=== PATIENT | female | born 1980 | race Two or more races ===

== ENCOUNTER 2017-07-14 05:37 | Day surgery (SDC) | payer OTHER ==
[2017-07-12 11:34] VITALS: BMI 40.0
--- NOTE | 2017-07-14 10:17 | HP ---
History & Physical Update - History History: No Change - Physical Physical: No Change - Assessment Assessment: No Change - Plan Plan: No Change (AUB - submucosal fibroid/polyp noted - for hysteroscopy and resection of fibroid/polyp)
[2017-07-14] MEDS ORDERED: ACETAMINOPHEN 325 MG TABLET (FP) PO PRN (10:19)
[2017-07-14] MEDS ORDERED: IBUPROFEN 800 MG/8 ML IJ IVPB PRN (10:19)
[2017-07-14] MEDS ORDERED: LACTATED RINGERS SOLUTION 1,000 ML IV SCH (10:30)
[2017-07-14] MEDS ORDERED: SUCCINYLCHOLINE CHLORIDE 200 MG/10 ML VIAL ONE (10:36)
[2017-07-14] MEDS ORDERED: MIDAZOLAM HCL 2 MG/2 ML SINGLE DOSE VIAL ONE (10:36)
[2017-07-14] MEDS ORDERED: LIDOCAINE HCL/PF 2% SDV 5ML VIAL ONE (10:36)
[2017-07-14] MEDS ORDERED: PROPOFOL 20 ML ONE (10:36)
[2017-07-14] MEDS ORDERED: KETOROLAC TROMETHAMINE 30 MG/1 ML VIAL ONE (11:22)
[2017-07-14] MEDS ORDERED: DEXAMETHASONE SOD PHOSPHATE 4 MG/1 ML VIAL ONE (11:24)
[2017-07-14] MEDS ORDERED: oxyCODONE HCL 5 MG TABLET PO PRN (11:45)
[2017-07-14] MEDS ORDERED: PROMETHAZINE HCL 25 MG/1 ML VIAL IVPUSH PRN (11:45)
[2017-07-14] MEDS ORDERED: ONDANSETRON 4 MG/2 ML VIAL IVPUSH PRN (11:45)
[2017-07-14] MEDS ORDERED: IBUPROFEN 800 MG/8 ML IJ IVPB ONE (12:18)
[2017-07-14 13:24] VITALS: BP 107/69; PULSE 72
[2017-07-14 13:28] VITALS: TEMP 97.8
--- NOTE | 2017-07-15 11:55 | PATH ---
Surgical Pathology Report Patient Name: KYLAH MAST [facility]. Rec. #: [id number] /Age/Gender: 1980 (Age: 37) / F Account: [id number] Location: [facility] SURGICAL Taken: 07/14/2017 Received: 07/14/2017 Reported: 07/15/2017 Physicians: Silvina Torres M.D. Specimen(s) Received INTRA UTERINE CONTENTS Clinical History Endometrial polyp Final Diagnosis ENDOMETRIUM, CURETTING: PORTIONS OF BENIGN ENDOMETRIAL POLYP, ALONG WITH LATE PROLIFERATIVE AND EARLY SECRETORY ENDOMETRIUM. NO ENDOMETRIAL HYPERPLASIA OR CARCINOMA IDENTIFIED. Electronically Signed Angel Mcgarry M.D. Gross Description Received in formalin labeled "intrauterine contents," is a 3.5 x 2.8 x 0.4 cm aggregate of black pink soft tissue fragments. The formalin is filtered and the specimen is entirely submitted in 2 cassettes. /07/14/2017 saudi/07/14/2017
--- NOTE | 2017-07-28 13:13 | OP ---
Operative Note - Note: Operative Date: 07/14/17 ([id number]) Pre-Operative Diagnosis: endometrial polyp Operation: hysteroscopic myomectomy, suction D&C Post-Operative Diagnosis: Same as Pre-op Surgeon: Silvina Torres Anesthesiologist/PRODUCTION UNDERWRITER: Luis Enrique Weaver Anesthesia: General Specimens Removed: endometrial polyp, endometrial curettings Estimated Blood Loss (mls): 10 Fluid Volume Replaced (mls): 140 (140cc fluid defecit of NSS) Operative Report Dictated: Yes
--- NOTE | 2017-07-28 13:34 | OP ---
DATE OF OPERATION: 07/14/2017 PREOPERATIVE DIAGNOSES: Abnormal uterine bleeding and endometrial polyp. POSTOPERATIVE DIAGNOSES: Abnormal uterine bleeding and endometrial polyp. PROCEDURE: Hysteroscopic resection of endometrial polyp and suction dilatation and curettage. SURGEON: Silvina Torres DO ANESTHESIA: Luis Enrique Weaver MD who will provide general anesthesia. ESTIMATED BLOOD LOSS: 10 mL. FLUID DEFICIT: Normal saline, 140 mL. COUNTS: Sponge, needle, and instrument count correct at the end of the case. SPECIMENS REMOVED: Included endometrial polyp and endometrial curettings. COMPLICATIONS: None. DISPOSITION: Stable to PACU. BRIEF HISTORY AND PROCEDURE: Patient is a 37-year-old female who had been seen in the office with complaints of abnormal bleeding and upon saline-infusion hysterosonogram was noted to have an endometrial polyp. The patient was counseled on her options and elected to undergo a hysteroscopy and possible hysteroscopic resection of endometrial polyp and D & C. The patient was admitted to [facility] on July 14, 2017. Consents were reconfirmed upon admission. She was then taken back to the operating room. She was put in the dorsal lithotomy position and given general anesthesia by Dr. Luis Enrique Weaver. A hard timeout was performed and the patient had been prepped and draped in the usual sterile fashion. A speculum was placed inside the vagina and the anterior lip of the cervix was grasped with a single-tooth tenaculum. The cervix was serially dilated to accommodate an operative hysteroscope which was advanced to the fundus. Bilateral tubal ostia were noted. A left anterior fundal endometrial polyp was appreciated which was then resected in several passes with the Versapoint resectoscope. A suction D & C was performed to remove the uterine contents and 1 final look with the scope revealed no evidence of uterine trauma or perforation. All instruments were removed from the vagina. Tenaculum sites were noted to be hemostatic. All specimens were sent to Pathology for permanent evaluation. Counts were reported to be correct. The patient was awoken from anesthesia and recovered in stable condition in the PACU after the procedure. SILVINA TORRES DO /[id number]
== END 2017-07-14 14:13 | disposition home or self-care (01) ==
LOC: JASU-SURG 05:37
PROVIDERS: ATTEND Obstetrics & Gynecology
PROC: 0UB98ZX Excision of Uterus, Via Natural or Artificial Opening Endoscopic, Diagnostic (ICD-10-PCS; principal; 2017-07-14 10:00)
PROC: 0UDB7ZX Extraction of Endometrium, Via Natural or Artificial Opening, Diagnostic (ICD-10-PCS; 2017-07-14 10:00)
DX: N93.9 Abnormal uterine and vaginal bleeding, unspecified (principal); N84.0 Polyp of corpus uteri
CPT/HCPCS: 84703; 86850; 86900; 86901; 88305-TC; 94760

== ENCOUNTER 2021-02-09 07:55 | Day surgery (SDC) | payer BC ==
[2021-02-04 12:40] VITALS: BMI 41.4
[~2021-02-09 07:55] MED LIST: CEFAZOLIN 2 GM in DEXTROSE 5%-WATER 100 ML IVPB ONE; PHENAZOPYRIDINE HCL 100 MG TABLET (FP) PO ONE
[2021-02-09 09:17] LABS: INR 1.2 (0.83-1.09); PROTHROMBIN TIME (PATIENT) 14.5 SEC (9.7-13.0)
[2021-02-09 09:20] LABS: ACTIVATED PTT 27.9 SECONDS (25.2-36.5)
[2021-02-09] MEDS ORDERED: ceFAZolin SODIUM 1 GM VIAL ONE ×3 (10:00→19:40)
[2021-02-09] MEDS ORDERED: PHENAZOPYRIDINE HCL 100 MG TABLET (FP) ONE (10:00)
[2021-02-09] MEDS ORDERED: BUPIVACAINE HCL/PF 0.25% (2.5MG/ML) 10 ML VIAL ONE (10:31)
[2021-02-09] MEDS ORDERED: BUPIVACAINE LIPOSOME/PF (EXPAREL) 266 MG/20 ML VIAL ONE (10:31)
[2021-02-09] MEDS ORDERED: PROPOFOL 20 ML ONE (10:52)
[2021-02-09] MEDS ORDERED: ROCURONIUM BROMIDE 50 MG/5 ML SYRINGE ONE ×2 (10:53→12:37)
[2021-02-09] MEDS ORDERED: fentaNYL CITRATE 250 MCG/5 ML VIAL ONE (10:53)
[2021-02-09] MEDS ORDERED: MIDAZOLAM HCL 2 MG/2 ML SINGLE DOSE VIAL ONE ×2 (10:53)
[2021-02-09] MEDS ORDERED: ceFAZolin SODIUM 1 GM VIAL IVPB ONE (11:44)
[2021-02-09] MEDS ORDERED: NEOSTIGMINE METHYLSULFATE 0.5 MG/ML - 10 ML MDV ONE (13:11)
[2021-02-09] MEDS ORDERED: GLYCOPYRROLATE 0.2 MG/1 ML VIAL ONE ×2 (13:11→13:21)
[2021-02-09] MEDS ORDERED: SODIUM CHLORIDE 1,000 ML IV SCH (14:00)
[2021-02-09] MEDS ORDERED: ACETAMINOPHEN 325 MG TABLET (FP) PO PRN (14:00)
[2021-02-09] MEDS ORDERED: SIMETHICONE 80 MG TAB.CHEW (FP) PO PRN (14:00)
[2021-02-09] MEDS ORDERED: BISACODYL 5 MG TABLET.DR (FP) PO PRN (14:00)
[2021-02-09] MEDS ORDERED: ONDANSETRON 4 MG/2 ML VIAL IVPUSH PRN ×2 (14:00→14:02)
[2021-02-09] MEDS ORDERED: DOCUSATE SODIUM 100 MG CAPSULE (FP) PO PRN (14:00)
[2021-02-09] MEDS ORDERED: oxyCODONE HCL 5 MG TABLET PO PRN ×2 (14:00)
[2021-02-09] MEDS ORDERED: IBUPROFEN 800 MG/8 ML IJ IVPB PRN (14:00)
[2021-02-09] MEDS ORDERED: HYDROmorphone HCL CARPU-JECT 2 MG/1 ML DISP.SYRIN IVPUSH PRN (14:02)
[2021-02-09] MEDS ORDERED: LACTATED RINGERS SOLUTION 1,000 ML IV SCH (14:15)
[2021-02-09] MEDS ORDERED: HYDROmorphone HCl 2 MG/ML VIAL ONE (14:25)
[2021-02-09] MEDS: HYDROmorphone HCl 2 MG/ML VIAL IVPUSH PRN ×3 (14:35→15:30)
[2021-02-09] MEDS ORDERED: IBUPROFEN 800 MG/8 ML IJ IVPB ONE (19:40)
[2021-02-09 20:11] LABS: HEMATOCRIT 37.2 % (32.4-45.2); HEMOGLOBIN 12.1 GM/dL (10.7-15.3); MCH 23.7 pg (25.7-33.7); MCHC 32.4 g/dl (32.0-36.0); MEAN CELL VOLUME 73.2 fl (80-96); MEAN PLT VOLUME 7.9 fl (7.5-11.1); PLATELET COUNT 402 K/MM3 (134-434); RBC 5.08 M/mm3 (3.60-5.2); RDW 17.1 % (11.6-15.6); WHITE BLOOD COUNT 17.2 K/mm3 (4.0-10.0)
[2021-02-09 20:23] LABS: CALCIUM 8.8 mg/dL (8.5-10.1)
[2021-02-09 20:24] LABS: BLOOD UREA NITROGEN 6.5 mg/dL (7-18)
[2021-02-09 20:28] LABS: CREATININE 0.6 mg/dL (0.55-1.3)
[2021-02-09 21:19] VITALS: TEMP 98.4
[2021-02-09] MEDS: INSULIN SLIDING SCALE (NOVOLOG) 1 VIAL SQ SCH (21:50)
[2021-02-09] MEDS: ENOXAPARIN NA (PORCINE) 100 MG/1 ML DISP.SYRIN SQ SCH (21:50)
[2021-02-09] MEDS: CEFAZOLIN 1 GM/D5W 1 GM/50 ML BAG IVPB SCH (21:51)
[2021-02-10] MEDS: CEFAZOLIN 1 GM/D5W 1 GM/50 ML BAG IVPB SCH ×2 (03:55→11:21)
[2021-02-10] MEDS: INSULIN SLIDING SCALE (NOVOLOG) 1 VIAL SQ SCH ×2 (06:35→11:27)
[2021-02-10 06:48] VITALS: BP 124/75; PULSE 68
[2021-02-10 08:21] LABS: HEMATOCRIT 34.5 % (32.4-45.2); HEMOGLOBIN 11.3 GM/dL (10.7-15.3); MCH 23.9 pg (25.7-33.7); MCHC 32.7 g/dl (32.0-36.0); MEAN CELL VOLUME 73.1 fl (80-96); MEAN PLT VOLUME 8.2 fl (7.5-11.1); PLATELET COUNT 361 K/MM3 (134-434); RBC 4.72 M/mm3 (3.60-5.2); RDW 16.9 % (11.6-15.6); WHITE BLOOD COUNT 13.6 K/mm3 (4.0-10.0)
[2021-02-10 08:23] LABS: INR 1.19 (0.83-1.09); PROTHROMBIN TIME (PATIENT) 14.6 SEC (9.7-13.0)
[2021-02-10 08:32] LABS: CALCIUM 8.9 mg/dL (8.5-10.1)
[2021-02-10 08:36] LABS: CREATININE 0.5 mg/dL (0.55-1.3)
[2021-02-10] MEDS ORDERED: FERROUS SO4 325 MG TABLET (FP) PO SCH (10:00)
[2021-02-10] MEDS ORDERED: PANTOPRAZOLE 40 MG TABLET PO SCH (10:00)
[2021-02-10] MEDS ORDERED: EZETIMIBE 10 MG TABLET (FP) PO SCH (10:00)
[2021-02-10] MEDS ORDERED: PATIENT'S OWN MEDICATION (NON-FORMULARY) (Warfarin Sodium [Warfarin Sodium] 4 MG Tablet) PO SCH (10:00)
[2021-02-10] MEDS ORDERED: METHIMAZOLE 10 MG TABLET (FP) PO SCH (10:00)
[2021-02-10] MEDS ORDERED: PT OWN MED DRAWER 7, Y5N ONE ×2 (10:07→10:14)
[2021-02-10] MEDS: ENOXAPARIN NA (PORCINE) 100 MG/1 ML DISP.SYRIN SQ SCH (10:15)
[2021-02-10] MEDS ORDERED: WARFARIN NA 2 MG TABLET PO SCH (18:00)
== END 2021-02-10 14:05 | disposition home or self-care (01) ==
LOC: JASUSAT 07:55 → J8W 20:08 → JASUSAT 02-10 14:05
PROVIDERS: ATTEND Obstetrics & Gynecology
PROC: 0UT9FZZ Resection of Uterus, Via Natural or Artificial Opening With Percutaneous Endoscopic Assistance (ICD-10-PCS; principal; 2021-02-09 11:00)
PROC: 0UT7FZZ Resection of Bilateral Fallopian Tubes, Via Natural or Artificial Opening With Percutaneous Endoscopic Assistance (ICD-10-PCS; 2021-02-09 11:00)
DX: D25.9 Leiomyoma of uterus, unspecified (principal); N83.8 Other noninflammatory disorders of ovary, fallopian tube and broad ligament; E11.9 Type 2 diabetes mellitus without complications
CPT/HCPCS: 36415; 80048; 82962; 84703; 85027; 85610; 85730; 86850; 86900; 86901; 88302-TC; 88307-TC; 94760